=== PATIENT | male | born 1960 | race Caucasian/White ===

== ENCOUNTER 2017-11-11 10:02 | Inpatient (IN) ==
[2017-11-11] MEDS ORDERED: NITROGLYCERIN SL 0.4 MG TABLET SL ONE (10:10)
[2017-11-11] MEDS ORDERED: ASPIRIN 325 MG TABLET ONE (10:10)
[2017-11-11] MEDS ORDERED: NITROGLYCERIN SL 0.4 MG TABLET SL PRN (10:11)
[2017-11-11] MEDS ORDERED: ENOXAPARIN 100 MG/ML SYRINGE SUBCUT STA (10:11)
[2017-11-11] MEDS ORDERED: ASPIRIN 325 MG TABLET PO STA (10:11)
[2017-11-11] MEDS ORDERED: ENOXAPARIN 80 MG/0.8 ML SYRINGE SUBCUT ONE (10:21)
[2017-11-11 10:30] LABS: Basophils % 0.6 % (0.0-0.8); Eosinophils # 0.1 10*3/uL (0.0-0.87); Eosinophils % 0.8 % (0.00-10.9); Hematocrit 45.1 VOL% (42.0-52.0); Hemoglobin 15.4 GM/DL (14.0-18.0); Immature Granulocytes % 0.6 %; Immature Granulocytes Absolute 0.04 #; Lymphocytes # 1.4 10*3/uL (1.4-4.0); Lymphocytes % 21.2 % (21.2-54.2); Mean Corpuscular HGB Conc 34.1 GM/DL (32-36); Mean Corpuscular Hemoglobin 29 PG (27-34); Mean Corpuscular Volume 85.4 FL (87-102); Mean Platelet Volume 11.6 FL (9.6-12.0); Monocytes # 0.4 10*3/uL (0.11-0.8); Monocytes % 6.4 % (1.7-12.7); Neutrophils # 4.6 10*3/uL (1.4-7.4); Neutrophils % 70.4 % (38.7-73.9); Platelet Count 185 T/CUMM (130-400); Red Blood Count 5.28 MC/CUMM (3.8-5.5); Red Cell Distribution Width 12.5 % (9.3-17.3); White Blood Count 6.6 T/CUMM (4-12)
[2017-11-11 11:04] LABS: Albumin 3.9 G/DL (3.4-5.0); Bilirubin,Total 0.6 MG/DL (0.2-1.0); Calcium 8.9 MG/DL (8.5-10.1); Osmolality,Calculated 277.5 MOS/KG (273-304); Potassium 3.9 MMOL/L (3.5-5.1); Total Protein 6.8 G/DL (6.4-8.3)
[2017-11-11] MEDS ORDERED: ALUM/MAG/SIMETH/LIDO VISC 1:1 30 ML BOTTLE PO ONE (11:42)
[2017-11-11] MEDS ORDERED: ALUM/MAG/SIMETH/LIDO VISC 1:1 30 ML BOTTLE PO STA (11:44)
[2017-11-11] MEDS ORDERED: diphenhydrAMINE CAP 25 MG CAPSULE PO ONE (12:10)
[2017-11-11] MEDS ORDERED: POTASSIUM CHLORIDE RIDER 10 MEQ in PREMIX 1 EACH IV PRN ×2 (12:10→20:52)
[2017-11-11] MEDS ORDERED: MAGNESIUM SULF RIDER 2 GM in PREMIX 1 EACH IV PRN ×3 (12:10→20:52)
[2017-11-11] MEDS ORDERED: NITROGLYCERIN 2% OINT 1 INCH/GM PACK TOP ONE (12:10)
[2017-11-11] MEDS ORDERED: DIAZEPAM 5 MG TABLET PO ONE (12:10)
[2017-11-11] MEDS ORDERED: ONDANSETRON 4 MG/2 ML VIAL IV PRN ×2 (12:12→20:52)
[2017-11-11] MEDS ORDERED: ACETAMINOPHEN 325 MG TABLET PO PRN (12:12)
[2017-11-11] MEDS ORDERED: NITROGLYCERIN 2% OINT 1 INCH/GM PACK TOP SCH (12:12)
[2017-11-11] MEDS ORDERED: MORPHINE 2 MG/1 ML SYRINGE IV PRN (12:12)
[2017-11-11] MEDS ORDERED: BISACODYL 5 MG TABLET PO PRN (12:12)
[2017-11-11] MEDS ORDERED: ZALEPLON 5 MG CAPSULE PO PRN (12:12)
[2017-11-11] MEDS ORDERED: MAGNESIUM SULF RIDER 4 GM in PREMIX 1 EACH IV PRN ×2 (12:12→20:52)
[2017-11-11] MEDS ORDERED: POTASSIUM CHLORIDE 20 MEQ TABLET PO PRN ×2 (12:12)
[2017-11-11] MEDS ORDERED: SODIUM CHLORIDE 0.45% 1,000 ML IV SCH ×2 (12:30→21:00)
[2017-11-11 12:32] LABS: INR 0.9; PT Patient Result 9.9 SECS
[2017-11-11] MEDS ORDERED: LIDOCAINE 1% 20 ML VIAL ONE ×2 (13:14→14:48)
[2017-11-11] MEDS ORDERED: NITROGLYCERIN DRIP 50 MG/250 ML BOTTLE IV ONE ×2 (13:14→14:43)
[2017-11-11] MEDS ORDERED: VERAPAMIL 5 MG/2 ML VIAL ONE (13:14)
[2017-11-11] MEDS ORDERED: fentaNYL 100 MCG/2 ML VIAL ONE (13:29)
[2017-11-11] MEDS ORDERED: MIDAZOLAM 2 MG/2 ML VIAL ONE ×3 (13:29→14:52)
[2017-11-11] MEDS ORDERED: ENOXAPARIN 30 MG/0.3 ML SYRINGE ONE (13:45)
[2017-11-11] MEDS ORDERED: CALCIUM CHLORIDE 1,000 MG/10 ML VIAL IV ONE ×2 (14:43→21:29)
[2017-11-11] MEDS ORDERED: PHENYLEPHRINE DRIP 20 MG/250 ML PREMIX IV ONE ×2 (14:43→19:01)
[2017-11-11] MEDS ORDERED: PAPAVERINE 60 MG/2 ML VIAL ONE (14:43)
[2017-11-11] MEDS ORDERED: SODIUM CHLORIDE 0.9% 1,000 ML IV ONE (14:43)
[2017-11-11] MEDS ORDERED: LACTATED RINGERS 1,000 ML IV ONE (14:43)
[2017-11-11] MEDS ORDERED: VANCOMYCIN 1,000 MG VIAL ONE (14:43)
[2017-11-11] MEDS ORDERED: VECURONIUM 10 MG VIAL IV ONE (14:43)
[2017-11-11] MEDS ORDERED: ALBUMIN 5% 12.5 GM/250 ML VIAL IV ONE ×2 (14:44→16:35)
[2017-11-11] MEDS ORDERED: HEPARIN/NACL 0.9% 2 UNITS/ML 1,000 ML IV ONE (14:50)
[2017-11-11] MEDS ORDERED: diphenhydrAMINE 50 MG/1 ML VIAL ONE (14:52)
[2017-11-11] MEDS ORDERED: CEFUROXIME 1,500 MG VIAL ONE (15:07)
[2017-11-11 16:07] LABS: ABG Base Excess -1.6 MMOL/L (-2.5-2.5); ABG HCO3 23.1 MMOL/L (20-26); ABG PCO2 34.1 MM HG (35-48); ABG TCO2 19.3 MMOL/L (23-27); Ionized Calcium Arterial 1.04 MMOL/L (1.21-1.46); PCO2 Patient Temp Arterial 34.1 MMHG; Patient Temperature 37 CELCIUS; Potassium Heart/CVR 3.7 MMOL/L (3.5-5.1); Sodium Heart/CVR 135 MMOL/L (135-145)
[2017-11-11 16:08] LABS: Glucose Heart Surgery 85 MG/DL (74-106); Hematocrit Heart Surgery 39.6 PERCENT (42-52); Hemoglobin Heart Surgery 12.9 G/DL (14.0-18.0)
[2017-11-11] MEDS ORDERED: CALCIUM CHLORIDE 1,000 MG/10 ML SYRINGE IV ONE (16:34)
[2017-11-11] MEDS ORDERED: SODIUM BICARBONATE 50 MEQ/50 ML SYRINGE IV ONE ×2 (16:34→19:01)
[2017-11-11] MEDS ORDERED: NITROPRUSSIDE 50 MG/2 ML VIAL ONE (16:34)
[2017-11-11] MEDS ORDERED: PHENYLEPHRINE DRIP 40 MG/250 ML PREMIX IV ONE (16:34)
[2017-11-11] MEDS ORDERED: EPINEPHrine 1 MG/10 ML SYRINGE ONE (16:34)
[2017-11-11] MEDS ORDERED: POTASSIUM CHLORIDE RIDER 100 ML IV ONE (16:35)
[2017-11-11] MEDS ORDERED: LIDOCAINE 100 MG/5 ML SYRINGE ONE (16:35)
[2017-11-11] MEDS ORDERED: ATROPINE 1 MG/1 ML VIAL ONE (16:35)
[2017-11-11] MEDS ORDERED: methylPREDNISolone SOD SUC 1,000 MG/8 ML VIAL ONE ×2 (16:52→19:01)
[2017-11-11 16:58] LABS: Glucose Heart Surgery 72 MG/DL (74-106); Hemoglobin Heart Surgery 10.6 G/DL (14.0-18.0); Potassium Heart/CVR 4.1 MMOL/L (3.5-5.1); Sodium Heart/CVR 136 MMOL/L (135-145); VBG Base Excess -2.5 MEQ/L (0-4); VBG HCO3 22.6 MEQ/L (24-28); VBG PH 7.369; VBG PO2 54.5 MMHG (17-40)
[2017-11-11 17:27] LABS: Hematocrit Heart Surgery 30.4 PERCENT (42-52); Hemoglobin Heart Surgery 9.8 G/DL (14.0-18.0); PCO2 Patient Temp Venous 42.7 MM HG; PH Patient Temp Venous 7.345; Potassium Heart/CVR 4.7 MMOL/L (3.5-5.1); VBG Base Excess -2.3 MEQ/L (0-4); VBG HCO3 22.5 MEQ/L (24-28); VBG Oxygen Saturation 99.1 %; VBG PCO2 42.7 MMHG (41-51); VBG PH 7.345
[2017-11-11 18:04] LABS: Hematocrit Heart Surgery 30.6 PERCENT (42-52); Hemoglobin Heart Surgery 9.9 G/DL (14.0-18.0); PCO2 Patient Temp Venous 40.3 MM HG; PH Patient Temp Venous 7.395; PO2 Patient Temp Venous 76.8 MM HG; Potassium Heart/CVR 3.7 MMOL/L (3.5-5.1); VBG Base Excess -0.1 MEQ/L (0-4); VBG HCO3 24.3 MEQ/L (24-28); VBG Oxygen Saturation 95.9 %; VBG PCO2 40.3 MMHG (41-51); VBG PH 7.395; VBG PO2 76.8 MMHG (17-40)
[2017-11-11 18:35] LABS: Hematocrit Heart Surgery 32.5 PERCENT (42-52); Hemoglobin Heart Surgery 10.5 G/DL (14.0-18.0); PCO2 Patient Temp Venous 39.3 MM HG; PH Patient Temp Venous 7.403; PO2 Patient Temp Venous 44.8 MM HG; Potassium Heart/CVR 4.3 MMOL/L (3.5-5.1); VBG Base Excess -0.1 MEQ/L (0-4); VBG Oxygen Saturation 79.8 %; VBG PCO2 39.3 MMHG (41-51); VBG PH 7.403; VBG PO2 44.8 MMHG (17-40)
[2017-11-11] MEDS ORDERED: DEXTROSE 5% KCL 20 MEQ 20 MEQ/1,000 ML BAG IV ONE (19:01)
[2017-11-11] MEDS ORDERED: PROTAMINE SULFATE 250 MG/25 ML VIAL IV ONE (19:01)
[2017-11-11] MEDS ORDERED: MANNITOL 12.5 GM/50 ML VIAL IV ONE (19:01)
[2017-11-11] MEDS ORDERED: FUROSEMIDE 20 MG/2 ML VIAL ONE (19:01)
[2017-11-11] MEDS ORDERED: MAGNESIUM SULFATE 1 GM/2 ML VIAL ONE (19:01)
[2017-11-11] MEDS ORDERED: ALBUMIN 25% 25 GM/100 ML VIAL IV ONE (19:01)
[2017-11-11] MEDS ORDERED: HEPARIN 10,000 UNIT/10 ML VIAL ONE ×2 (19:01→21:30)
[2017-11-11] MEDS ORDERED: POTASSIUM CHLORIDE 20 MEQ/10 ML VIAL ONE (19:02)
[2017-11-11 19:10] LABS: ABG Base Excess -2.5 MMOL/L (-2.5-2.5); ABG HCO3 22.4 MMOL/L (20-26); ABG PCO2 40.6 MM HG (35-48); ABG PH 7.357 (7.35-7.45); Glucose Heart Surgery 187 MG/DL (74-106); Hematocrit Heart Surgery 28.3 PERCENT (42-52); Hemoglobin Heart Surgery 9.1 G/DL (14.0-18.0); Ionized Calcium Arterial 0.93 MMOL/L (1.21-1.46); PCO2 Patient Temp Arterial 40.6 MMHG; PH Patient Temp Arterial 7.357; Patient Temperature 37 CELCIUS; Potassium Heart/CVR 3.8 MMOL/L (3.5-5.1); Sodium Heart/CVR 138 MMOL/L (135-145)
[2017-11-11] MEDS ORDERED: THROMBIN TOPICAL (RECOMBINANT) 5,000 UNIT VIAL TOP ONE (19:30)
[2017-11-11] MEDS ORDERED: PROTAMINE SULFATE 50 MG/5 ML VIAL IV ONE ×2 (20:49→21:08)
[2017-11-11] MEDS ORDERED: MIDAZOLAM 10 MG/2 ML VIAL IV PRN (20:52)
[2017-11-11] MEDS ORDERED: VECURONIUM 10 MG VIAL IV PRN ×2 (20:52)
[2017-11-11] MEDS ORDERED: INSULIN REGULAR 100 UNIT/ML IV PRN (20:52)
[2017-11-11] MEDS ORDERED: INSULIN REGULAR 100 UNIT/ML IV ONE (20:52)
[2017-11-11] MEDS ORDERED: CALCIUM CHLORIDE 1,000 MG/10 ML SYRINGE IV PRN (20:52)
[2017-11-11] MEDS ORDERED: DEXTROSE 50% 25 GM/50 ML VIAL IV PRN ×2 (20:52)
[2017-11-11] MEDS ORDERED: PHENYLEPHRINE DRIP 40 MG/250 ML PREMIX IV PRN (20:52)
[2017-11-11] MEDS ORDERED: ACETAMINOPHEN 650 MG SUPP RECTAL PRN (20:52)
[2017-11-11] MEDS ORDERED: NITROPRUSSIDE 100 MG in DEXTROSE 5% 250 ML IV PRN (20:52)
[2017-11-11] MEDS ORDERED: INSULIN REGULAR DRIP 100 ML IV SCH (21:00)
[2017-11-11 21:05] LABS: ABG Base Excess 2.3 MMOL/L (-2.5-2.5); ABG HCO3 26.4 MMOL/L (20-26); ABG Oxygen Saturation 98.3 % (95-100); ABG PCO2 38.8 MM HG (35-48); ABG PH 7.451 (7.35-7.45); ABG PO2 209.1 MM HG (80-95); ABG TCO2 27.6 MMOL/L (23-27); Glucose Heart Surgery 165 MG/DL (74-106); Hemoglobin Heart Surgery 9.5 G/DL (14.0-18.0); Potassium Heart/CVR 3.5 MMOL/L (3.5-5.1)
[2017-11-11 21:08] LABS: Basophils % 0.2 % (0.0-0.8); Eosinophils % 0.4 % (0.00-10.9); Hematocrit 25.4 VOL% (42.0-52.0); Hemoglobin 8.9 GM/DL (14.0-18.0); Immature Granulocytes Absolute 0.16 #; Lymphocytes % 11.9 % (21.2-54.2); Mean Corpuscular Hemoglobin 30 PG (27-34); Mean Corpuscular Volume 85.8 FL (87-102); Mean Platelet Volume 11.6 FL (9.6-12.0); Monocytes # 0.4 10*3/uL (0.11-0.8); Monocytes % 5.3 % (1.7-12.7); Neutrophils # 6.5 10*3/uL (1.4-7.4); Neutrophils % 80.2 % (38.7-73.9); Platelet Count 143 T/CUMM (130-400); Red Blood Count 2.96 MC/CUMM (3.8-5.5); Red Cell Distribution Width 12.4 % (9.3-17.3); White Blood Count 8.1 T/CUMM (4-12)
[2017-11-11] MEDS: SODIUM CHLORIDE 0.45% 1,000 ML IV SCH (21:10)
[2017-11-11] MEDS: KETOROLAC 30 MG/1 ML VIAL IV SCH (21:12)
[2017-11-11 21:18] LABS: INR 1.3; PT Patient Result 13.2 SECS; Partial Thromboplastin Time 28.7 SECS (0-40)
[2017-11-11] MEDS ORDERED: MIDAZOLAM 10 MG/2 ML VIAL ONE ×2 (21:28)
[2017-11-11] MEDS ORDERED: SUFentanil 250 MCG/5 ML AMP ONE (21:28)
[2017-11-11 21:30] LABS: Albumin 3.1 G/DL (3.4-5.0); Calcium 8.7 MG/DL (8.5-10.1); Osmolality,Calculated 285.1 MOS/KG (273-304); Potassium 3.7 MMOL/L (3.5-5.1); Total Protein 5.3 G/DL (6.4-8.3)
[2017-11-11] MEDS ORDERED: TRANEXAMIC ACID 1,000 MG/10 ML VIAL IV ONE (21:30)
[2017-11-11] MEDS ORDERED: SEVOFLURANE 1 UNIT/15 MINUTE INH ONE (21:30)
[2017-11-11] MEDS ORDERED: AMIODARONE 150 MG/3 ML VIAL ONE (21:31)
[2017-11-11] MEDS: ALBUMIN 5% 12.5 GM in PREMIX 1 EACH IV PRN ×2 (22:48→22:58)
[2017-11-11] MEDS: LACTATED RINGERS 250 ML IV PRN ×4 (23:09→23:49)
[2017-11-11 23:22] LABS: ABG HCO3 26.9 MMOL/L (20-26); ABG Oxygen Saturation 98.3 % (95-100); ABG PCO2 43.6 MM HG (35-48); ABG PH 7.408 (7.35-7.45); ABG PO2 226.9 MM HG (80-95); ABG TCO2 28.2 MMOL/L (23-27); Glucose Heart Surgery 188 MG/DL (74-106); Hemoglobin Heart Surgery 9.5 G/DL (14.0-18.0); Potassium Heart/CVR 3.6 MMOL/L (3.5-5.1)
[2017-11-11] MEDS: POTASSIUM CHLORIDE RIDER 20 MEQ in PREMIX 1 EACH IV PRN (23:50)
[2017-11-12] MEDS: MIDAZOLAM 2 MG/2 ML VIAL IV PRN
[2017-11-12] MEDS: LACTATED RINGERS 250 ML IV PRN ×3 (00:04→03:52)
[2017-11-12] MEDS: CHLORHEXIDINE 0.12% ORAL RINSE 60 ML BOTTLE SWISH/SPIT SCH ×3 (00:09→21:35)
[2017-11-12 00:13] LABS: Hematocrit 24.8 VOL% (42.0-52.0); Hemoglobin 8.8 GM/DL (14.0-18.0)
[2017-11-12] MEDS: MORPHINE 10 MG/1 ML VIAL IV PRN ×5 (00:23→19:44)
[2017-11-12] MEDS: KETOROLAC 30 MG/1 ML VIAL IV SCH ×4 (03:29→21:36)
[2017-11-12 03:45] LABS: ABG Base Excess 0.8 MMOL/L (-2.5-2.5); ABG HCO3 25.1 MMOL/L (20-26); ABG Oxygen Saturation 99.5 % (95-100); ABG PCO2 38.8 MM HG (35-48); ABG PH 7.419 (7.35-7.45); ABG TCO2 21.7 MMOL/L (23-27); Glucose Heart Surgery 190 MG/DL (74-106); Hemoglobin Heart Surgery 13.7 G/DL (14.0-18.0); Potassium Heart/CVR 4.1 MMOL/L (3.5-5.1)
[2017-11-12 04:25] LABS: ABG Base Excess 1.3 MMOL/L (-2.5-2.5); ABG HCO3 25.6 MMOL/L (20-26); ABG Oxygen Saturation 99.1 % (95-100); ABG PCO2 42.9 MM HG (35-48); ABG PH 7.396 (7.35-7.45); ABG TCO2 23.9 MMOL/L (23-27); Glucose Heart Surgery 182 MG/DL (74-106); Hematocrit Heart Surgery 32.1 PERCENT (42-52); Hemoglobin Heart Surgery 10.4 G/DL (14.0-18.0)
[2017-11-12 04:47] LABS: Basophils % 0.1 % (0.0-0.8); Hematocrit 29.9 VOL% (42.0-52.0); Hemoglobin 10.1 GM/DL (14.0-18.0); Immature Granulocytes % 0.6 %; Immature Granulocytes Absolute 0.07 #; Lymphocytes # 0.5 10*3/uL (1.4-4.0); Mean Corpuscular HGB Conc 33.8 GM/DL (32-36); Mean Corpuscular Hemoglobin 29 PG (27-34); Mean Corpuscular Volume 87.2 FL (87-102); Mean Platelet Volume 11.7 FL (9.6-12.0); Monocytes # 0.3 10*3/uL (0.11-0.8); Monocytes % 2.5 % (1.7-12.7); Neutrophils # 11.1 10*3/uL (1.4-7.4); Neutrophils % 92.8 % (38.7-73.9); Platelet Count 129 T/CUMM (130-400); Red Blood Count 3.43 MC/CUMM (3.8-5.5); Red Cell Distribution Width 13.8 % (9.3-17.3); White Blood Count 11.9 T/CUMM (4-12)
[2017-11-12 05:23] LABS: ABG Base Excess 0.7 MMOL/L (-2.5-2.5); ABG HCO3 25.1 MMOL/L (20-26); ABG Oxygen Saturation 99.6 % (95-100); ABG PCO2 40.4 MM HG (35-48); ABG PH 7.407 (7.35-7.45); ABG TCO2 22.9 MMOL/L (23-27); Glucose Heart Surgery 174 MG/DL (74-106); Hematocrit Heart Surgery 32.7 PERCENT (42-52); Hemoglobin Heart Surgery 10.6 G/DL (14.0-18.0)
[2017-11-12 05:24] LABS: Band Neutrophils 9 % (0-10); Giant Platelets Few; Hypochromasia 1+; Lymphocytes 3 % (20-55); Ovalocytes Slight; Platelet Estimate Normal; Segmented Neutrophils 87 % (50-85); Total Cells Counted 100
[2017-11-12] MEDS: CEFUROXIME INJ 1,500 MG in SYRINGE 1 EACH IV SCH ×2 (05:45→17:56)
[2017-11-12] MEDS: POTASSIUM CHLORIDE RIDER 20 MEQ in PREMIX 1 EACH IV PRN ×3 (05:45→10:40)
[2017-11-12 06:04] LABS: CKMB % 3.1 %
[2017-11-12 06:05] LABS: Troponin I Only 3.48 NG/ML (0.00-0.045)
[2017-11-12 06:19] LABS: Albumin 3.3 G/DL (3.4-5.0); Bilirubin,Direct 0.26 MG/DL (0.0-0.20); Bilirubin,Total 1.2 MG/DL (0.2-1.0); Calcium 7.6 MG/DL (8.5-10.1); Potassium 4.2 MMOL/L (3.5-5.1); Total Protein 5.6 G/DL (6.4-8.3)
[2017-11-12] MEDS ORDERED: FUROSEMIDE 40 MG/4 ML VIAL IV ONE (06:19)
[2017-11-12 06:30] LABS: ABG Base Excess 0.7 MMOL/L (-2.5-2.5); ABG HCO3 25.4 MMOL/L (20-26); ABG Oxygen Saturation 97.4 % (95-100); ABG PCO2 41.1 MM HG (35-48); ABG PH 7.409 (7.35-7.45); ABG PO2 108.5 MM HG (80-95); ABG TCO2 26.7 MMOL/L (23-27); Glucose Heart Surgery 164 MG/DL (74-106); Hemoglobin Heart Surgery 10.9 G/DL (14.0-18.0); Potassium Heart/CVR 4.2 MMOL/L (3.5-5.1)
[2017-11-12] MEDS: INSULIN REGULAR 100 UNIT/ML SUBCUT SCH ×4 (08:34→20:37)
[2017-11-12 10:06] LABS: ABG Base Excess 1.7 MMOL/L (-2.5-2.5); ABG HCO3 25.7 MMOL/L (20-26); ABG Oxygen Saturation 95.8 % (95-100); ABG PCO2 38.1 MM HG (35-48); ABG PH 7.447 (7.35-7.45); ABG PO2 83.2 MM HG (80-95); ABG TCO2 26.9 MMOL/L (23-27); Glucose Heart Surgery 183 MG/DL (74-106); Hemoglobin Heart Surgery 10.9 G/DL (14.0-18.0); Potassium Heart/CVR 3.9 MMOL/L (3.5-5.1)
[2017-11-12 10:43] LABS: Risk Ratio 2.14; VLDL CHOLESTEROL 16.6 MG/DL
[2017-11-12 14:31] LABS: CKMB % 2.1 %
[2017-11-12 14:36] LABS: Troponin I Only 2.45 NG/ML (0.00-0.045)
[2017-11-12] MEDS ORDERED: oxyCODONE/ACETAMINOPHEN 5-325 MG TABLET PO PRN (15:29)
[2017-11-12] MEDS ORDERED: ZALEPLON 5 MG CAPSULE PO PRN (15:30)
[2017-11-12] MEDS ORDERED: TAMSULOSIN 0.4 MG CAPSULE PO SCH (15:30)
[2017-11-12] MEDS ORDERED: PROMETHAZINE INJ 12.5 MG in SODIUM CHLORIDE 0.9% 50 ML IV PRN (16:01)
[2017-11-12] MEDS ORDERED: METOCLOPRAMIDE 10 MG/2 ML VIAL IV PRN (16:02)
[2017-11-12] MEDS ORDERED: PROMETHAZINE 25 MG/1 ML VIAL IV PRN (16:03)
[2017-11-12] MEDS: buPROPion XL 150 MG TABLET PO SCH (16:07)
[2017-11-12] MEDS: FAMOTIDINE 20 MG TABLET PO SCH (21:38)
[2017-11-13] MEDS: SODIUM CHLORIDE 0.45% 1,000 ML IV SCH ×2 (02:46→05:41)
[2017-11-13] MEDS: KETOROLAC 30 MG/1 ML VIAL IV SCH ×3 (02:46→18:50)
[2017-11-13] MEDS: INSULIN REGULAR 100 UNIT/ML SUBCUT SCH ×3 (03:37→09:12)
[2017-11-13] MEDS: CEFUROXIME INJ 1,500 MG in SYRINGE 1 EACH IV SCH (04:13)
[2017-11-13 04:50] LABS: Basophils % 0.1 % (0.0-0.8); Hematocrit 25.5 VOL% (42.0-52.0); Hemoglobin 8.7 GM/DL (14.0-18.0); Immature Granulocytes % 0.8 %; Lymphocytes # 0.9 10*3/uL (1.4-4.0); Lymphocytes % 7.1 % (21.2-54.2); Mean Corpuscular HGB Conc 34.1 GM/DL (32-36); Mean Corpuscular Hemoglobin 30 PG (27-34); Mean Corpuscular Volume 88.2 FL (87-102); Mean Platelet Volume 12.1 FL (9.6-12.0); Monocytes % 8.1 % (1.7-12.7); Neutrophils # 10.2 10*3/uL (1.4-7.4); Neutrophils % 83.9 % (38.7-73.9); Platelet Count 100 T/CUMM (130-400); Red Blood Count 2.89 MC/CUMM (3.8-5.5); Red Cell Distribution Width 14.2 % (9.3-17.3); White Blood Count 12.2 T/CUMM (4-12)
[2017-11-13 04:56] LABS: Calcium 7.4 MG/DL (8.5-10.1); Osmolality,Calculated 287.1 MOS/KG (273-304); Potassium 4.5 MMOL/L (3.5-5.1)
[2017-11-13 05:08] LABS: Giant Platelets Few; Hypochromasia 1+; Ovalocytes Slight; Platelet Estimate Decreased
[2017-11-13] MEDS: POTASSIUM CHLORIDE RIDER 20 MEQ in PREMIX 1 EACH IV PRN (05:23)
[2017-11-13] MEDS: MIDAZOLAM 2 MG/2 ML VIAL IV PRN (06:20)
[2017-11-13] MEDS ORDERED: SODIUM CHLORIDE 0.9% 1,000 ML IV PRN ×2 (06:48→07:14)
[2017-11-13 08:09] LABS: Bilirubin,Direct 0.13 MG/DL (0.0-0.20); Bilirubin,Total 0.4 MG/DL (0.2-1.0); Calcium 7.8 MG/DL (8.5-10.1); Osmolality,Calculated 281.5 MOS/KG (273-304); Potassium 4.5 MMOL/L (3.5-5.1); Total Protein 4.9 G/DL (6.4-8.3)
[2017-11-13] MEDS: ATORVASTATIN 20 MG TABLET PO SCH (08:44)
[2017-11-13] MEDS: FAMOTIDINE 20 MG TABLET PO SCH ×2 (08:44→21:22)
[2017-11-13] MEDS: buPROPion XL 150 MG TABLET PO SCH (08:44)
[2017-11-13] MEDS: CHLORHEXIDINE 0.12% ORAL RINSE 60 ML BOTTLE SWISH/SPIT SCH ×3 (09:31→21:23)
[2017-11-13] MEDS: MORPHINE 10 MG/1 ML VIAL IV PRN (10:33)
[2017-11-13] MEDS ORDERED: MAGNESIUM SULF RIDER 2 GM in PREMIX 1 EACH IV PRN (11:45)
[2017-11-13] MEDS ORDERED: ALUMINUM/MAGNES/SIMETH MAX STR 30 ML UDCUP PO PRN (11:45)
[2017-11-13] MEDS ORDERED: ACETAMINOPHEN 325 MG TABLET PO PRN (11:45)
[2017-11-13] MEDS ORDERED: MAGNESIUM HYDROXIDE SUSP 30 ML UDCUP PO PRN (11:45)
[2017-11-13] MEDS ORDERED: ONDANSETRON 4 MG/2 ML VIAL IV PRN (11:45)
[2017-11-13] MEDS ORDERED: DEXTROSE 50% 25 GM/50 ML VIAL IV PRN ×2 (11:45)
[2017-11-13] MEDS ORDERED: MAGNESIUM SULF RIDER 4 GM in PREMIX 1 EACH IV PRN (11:45)
[2017-11-13] MEDS ORDERED: POTASSIUM CHLORIDE 20 MEQ TABLET PO PRN (11:45)
[2017-11-13] MEDS ORDERED: SODIUM CHLOR 0.45% KCL 20 MEQ 20 MEQ/1,000 ML BAG IV SCH (11:45)
[2017-11-13] MEDS ORDERED: GLUCAGON 1 MG VIAL IM PRN ×2 (11:45)
[2017-11-13] MEDS ORDERED: MORPHINE 2 MG/1 ML SYRINGE IV PRN (11:45)
[2017-11-13] MEDS: ASPIRIN EC 325 MG TABLET PO SCH (13:07)
[2017-11-13] MEDS: FERROUS SULFATE 325 MG TABLET PO SCH (13:07)
[2017-11-13] MEDS: DOCUSATE SODIUM 100 MG CAPSULE PO SCH (13:07)
[2017-11-13] MEDS: ZALEPLON 5 MG CAPSULE PO PRN (21:22)
[2017-11-13] MEDS: TAMSULOSIN 0.4 MG CAPSULE PO SCH (21:23)
[2017-11-14] MEDS: KETOROLAC 30 MG/1 ML VIAL IV SCH ×4 (00:31→18:38)
[2017-11-14 05:21] LABS: Basophils % 0.1 % (0.0-0.8); Hematocrit 27.6 VOL% (42.0-52.0); Hemoglobin 9.2 GM/DL (14.0-18.0); Immature Granulocytes % 1.4 %; Immature Granulocytes Absolute 0.19 #; Lymphocytes # 1.5 10*3/uL (1.4-4.0); Lymphocytes % 11.3 % (21.2-54.2); Mean Corpuscular HGB Conc 33.3 GM/DL (32-36); Mean Corpuscular Hemoglobin 29 PG (27-34); Mean Corpuscular Volume 88.2 FL (87-102); Mean Platelet Volume 13.1 FL (9.6-12.0); Monocytes # 1.4 10*3/uL (0.11-0.8); Monocytes % 10.2 % (1.7-12.7); Neutrophils # 10.4 10*3/uL (1.4-7.4); Platelet Count 100 T/CUMM (130-400); Red Blood Count 3.13 MC/CUMM (3.8-5.5); Red Cell Distribution Width 14.9 % (9.3-17.3); White Blood Count 13.5 T/CUMM (4-12)
[2017-11-14 05:47] LABS: Alanine Aminotransferase 21 U/L (16-61); Alkaline Phosphatase 51 U/L (45-117); Aspartate Amino Transferase 22 U/L (0-37); Bilirubin,Direct < 0.100 MG/DL (0.0-0.20); Bilirubin,Indirect 0.5 MG/DL (0.0-1.0); Blood Urea Nitrogen 25 MG/DL (7-18); Calcium 7.3 MG/DL (8.5-10.1); Glucose 114 MG/DL (74-106); Osmolality,Calculated 290.8 MOS/KG (273-304); Potassium 4.5 MMOL/L (3.5-5.1); Sodium 144 MMOL/L (136-145); Total Protein 4.9 G/DL (6.4-8.3)
[2017-11-14 05:50] LABS: Hypochromasia 1+; Microcytosis 1+; Ovalocytes Slight; Platelet Estimate Decreased
[2017-11-14] MEDS ORDERED: FUROSEMIDE 40 MG/4 ML VIAL IV ONE (06:00)
[2017-11-14 06:14] LABS: Troponin I Only 0.771 NG/ML (0.00-0.045)
[2017-11-14] MEDS: ASPIRIN EC 325 MG TABLET PO SCH (09:08)
[2017-11-14] MEDS: DOCUSATE SODIUM 100 MG CAPSULE PO SCH (09:09)
[2017-11-14] MEDS: buPROPion XL 150 MG TABLET PO SCH (09:09)
[2017-11-14] MEDS: FERROUS SULFATE 325 MG TABLET PO SCH (09:09)
[2017-11-14] MEDS: ATORVASTATIN 20 MG TABLET PO SCH (09:09)
[2017-11-14] MEDS: FAMOTIDINE 20 MG TABLET PO SCH ×2 (09:09→21:22)
[2017-11-14] MEDS: TAMSULOSIN 0.4 MG CAPSULE PO SCH (09:09)
[2017-11-14] MEDS: CHLORHEXIDINE 0.12% ORAL RINSE 60 ML BOTTLE SWISH/SPIT SCH ×2 (09:15→21:22)
[2017-11-14] MEDS: METOPROLOL SUCCINATE XL 25 MG TABLET PO SCH (13:47)
[2017-11-14] MEDS: ZALEPLON 5 MG CAPSULE PO PRN (21:22)
[2017-11-15] MEDS: KETOROLAC 30 MG/1 ML VIAL IV SCH ×4 (00:59→20:48)
[2017-11-15 04:49] LABS: Basophils % 0.2 % (0.0-0.8); Eosinophils # 0.1 10*3/uL (0.0-0.87); Hematocrit 29.1 VOL% (42.0-52.0); Hemoglobin 9.6 GM/DL (14.0-18.0); Immature Granulocytes % 1.6 %; Lymphocytes % 15.9 % (21.2-54.2); Mean Corpuscular Hemoglobin 30 PG (27-34); Mean Corpuscular Volume 89.5 FL (87-102); Mean Platelet Volume 12.5 FL (9.6-12.0); Monocytes # 1.1 10*3/uL (0.11-0.8); Monocytes % 8.8 % (1.7-12.7); NRBC # 0.03 10*3/uL; Neutrophils # 8.9 10*3/uL (1.4-7.4); Neutrophils % 72.5 % (38.7-73.9); Platelet Count 114 T/CUMM (130-400); Red Blood Count 3.25 MC/CUMM (3.8-5.5); White Blood Count 12.3 T/CUMM (4-12)
[2017-11-15 05:29] LABS: Alanine Aminotransferase 36 U/L (16-61); Albumin 2.8 G/DL (3.4-5.0); Alkaline Phosphatase 60 U/L (45-117); Aspartate Amino Transferase 26 U/L (0-37); Bilirubin,Indirect 0.5 MG/DL (0.0-1.0); Blood Urea Nitrogen 21 MG/DL (7-18); Glucose 100 MG/DL (74-106); Osmolality,Calculated 283.3 MOS/KG (273-304); Potassium 4.1 MMOL/L (3.5-5.1); Sodium 141 MMOL/L (136-145); Total Protein 5.3 G/DL (6.4-8.3)
[2017-11-15 05:31] LABS: Troponin I Only 0.418 NG/ML (0.00-0.045)
[2017-11-15] MEDS: DOCUSATE SODIUM 100 MG CAPSULE PO SCH (09:25)
[2017-11-15] MEDS: ASPIRIN EC 325 MG TABLET PO SCH (09:25)
[2017-11-15] MEDS: FERROUS SULFATE 325 MG TABLET PO SCH (09:25)
[2017-11-15] MEDS: TAMSULOSIN 0.4 MG CAPSULE PO SCH (09:25)
[2017-11-15] MEDS: METOPROLOL SUCCINATE XL 25 MG TABLET PO SCH (09:26)
[2017-11-15] MEDS: buPROPion XL 150 MG TABLET PO SCH (09:26)
[2017-11-15] MEDS: FAMOTIDINE 20 MG TABLET PO SCH ×2 (09:28→20:47)
[2017-11-15] MEDS: CHLORHEXIDINE 0.12% ORAL RINSE 60 ML BOTTLE SWISH/SPIT SCH ×2 (09:40→20:48)
[2017-11-15] MEDS: ATORVASTATIN 20 MG TABLET PO SCH (20:47)
[2017-11-15] MEDS: oxyCODONE/ACETAMINOPHEN 5-325 MG TABLET PO PRN (20:48)
[2017-11-16] MEDS: KETOROLAC 30 MG/1 ML VIAL IV SCH ×2 (02:15→08:35)
[2017-11-16] MEDS: oxyCODONE/ACETAMINOPHEN 5-325 MG TABLET PO PRN ×2 (02:16→21:32)
[2017-11-16] MEDS: DOCUSATE SODIUM 100 MG CAPSULE PO SCH (08:34)
[2017-11-16] MEDS: TAMSULOSIN 0.4 MG CAPSULE PO SCH (08:34)
[2017-11-16] MEDS: FERROUS SULFATE 325 MG TABLET PO SCH (08:34)
[2017-11-16] MEDS: METOPROLOL SUCCINATE XL 25 MG TABLET PO SCH (08:34)
[2017-11-16] MEDS: FAMOTIDINE 20 MG TABLET PO SCH ×2 (08:35→20:54)
[2017-11-16] MEDS: ASPIRIN EC 325 MG TABLET PO SCH (08:35)
[2017-11-16] MEDS: buPROPion XL 150 MG TABLET PO SCH (08:35)
[2017-11-16] MEDS: CHLORHEXIDINE 0.12% ORAL RINSE 60 ML BOTTLE SWISH/SPIT SCH ×2 (08:37→20:54)
[2017-11-16] MEDS: KETOROLAC 30 MG/1 ML VIAL IV PRN ×2 (12:00→18:01)
[2017-11-16] MEDS: ATORVASTATIN 20 MG TABLET PO SCH (20:54)
[2017-11-16] MEDS: ZALEPLON 5 MG CAPSULE PO PRN ×2 (21:32→23:03)
[2017-11-17] MEDS: KETOROLAC 30 MG/1 ML VIAL IV PRN (04:30)
[2017-11-17 04:47] LABS: Basophils % 0.4 % (0.0-0.8); Eosinophils # 0.3 10*3/uL (0.0-0.87); Eosinophils % 2.8 % (0.00-10.9); Hematocrit 29.2 VOL% (42.0-52.0); Hemoglobin 10.1 GM/DL (14.0-18.0); Immature Granulocytes Absolute 0.29 #; Lymphocytes # 1.6 10*3/uL (1.4-4.0); Lymphocytes % 16.7 % (21.2-54.2); Mean Corpuscular HGB Conc 34.6 GM/DL (32-36); Mean Corpuscular Hemoglobin 30 PG (27-34); Mean Corpuscular Volume 85.6 FL (87-102); Mean Platelet Volume 11.8 FL (9.6-12.0); Monocytes # 0.9 10*3/uL (0.11-0.8); Monocytes % 9.7 % (1.7-12.7); Neutrophils # 6.6 10*3/uL (1.4-7.4); Neutrophils % 67.4 % (38.7-73.9); Platelet Count 167 T/CUMM (130-400); Red Blood Count 3.41 MC/CUMM (3.8-5.5); Red Cell Distribution Width 14.6 % (9.3-17.3); White Blood Count 9.7 T/CUMM (4-12)
[2017-11-17 06:10] LABS: Alkaline Phosphatase 101 U/L (45-117); Calcium 7.9 MG/DL (8.5-10.1)
[2017-11-17 06:11] LABS: Alanine Aminotransferase 112 U/L (16-61); Albumin 2.5 G/DL (3.4-5.0); Aspartate Amino Transferase 58 U/L (0-37); Bilirubin,Indirect 1.1 MG/DL (0.0-1.0); Blood Urea Nitrogen 18 MG/DL (7-18); Glucose 129 MG/DL (74-106); Osmolality,Calculated 282.4 MOS/KG (273-304); Sodium 140 MMOL/L (136-145); Total Protein 5.3 G/DL (6.4-8.3)
[2017-11-17 08:03] VITALS: BP 129/76
[2017-11-17] MEDS: DOCUSATE SODIUM 100 MG CAPSULE PO SCH (09:41)
[2017-11-17] MEDS: FERROUS SULFATE 325 MG TABLET PO SCH (09:42)
[2017-11-17] MEDS: ASPIRIN EC 325 MG TABLET PO SCH (09:42)
[2017-11-17] MEDS: FAMOTIDINE 20 MG TABLET PO SCH (09:42)
[2017-11-17] MEDS: buPROPion XL 150 MG TABLET PO SCH (09:42)
[2017-11-17] MEDS: TAMSULOSIN 0.4 MG CAPSULE PO SCH (09:42)
[2017-11-17] MEDS: METOPROLOL SUCCINATE XL 25 MG TABLET PO SCH (09:42)
[2017-11-17] MEDS: CHLORHEXIDINE 0.12% ORAL RINSE 60 ML BOTTLE SWISH/SPIT SCH (09:45)
== END 2017-11-17 10:43 | disposition home or self-care (01) | DRG 218 ==
LOC: N.ED 10:02 → N.EDINP 10:02 → N.ICU 13:10 → N.CVR 17:16 → N.ICU 11-12 16:22 → N.TELES 11-13 10:19
PROVIDERS: ADMIT Internal Medicine Cardiovascular Disease; ATTEND Internal Medicine Cardiovascular Disease
PROC: CLCCHCL (ICD-10-PCS; 2017-11-11 14:30)